=== PATIENT | female | born 1985 | race Caucasian/White ===

== ENCOUNTER 2016-04-02 08:22 | Inpatient (IN) | payer MEDICAID ==
[~2016-04-02] VITALS: Ht 167.6 cm; Wt 89.9 kg
--- NOTE | ~2016-04-02 | INDIVTXPL2 ---
"PATIENT: CATARINA NIEVES | | [facility] UNIT #: [id number] | [address] AGE/SEX: 30 F : [birth year] | [address] | [place] [address] ADMIT/REG DATE: 04/05/16 | ROOM: [facility] LOC: ADTC | ADTC | Individualized Treatment Plan DATE:04/26/16 Problem Statement/Issue Identified:I need to learn assertivness skills Goal: To learn to be assertive Objectives/Activities to achieve goal: 1.I will practice being assertive and share examples with my counselor. Due Date:05/03/16 Complete: Incomplete: 2.I will be leader and listen to feedback from others on how I am doing in this role and share with my counselor. Due Date:05/03/16 Complete: Incomplete: 3. I will practice using I statments instead of you statments and share examples with my counselor. Due Date:05/03/16 Complete: Incomplete: Client Signature Date Counselor Signaure: Date Outcome/Measurement of Progress Towards Goal: Counselor Signature: Date "
--- NOTE | ~2016-04-02 | CLPRLASSUM ---
"PATIENT: CATARINA NIEVES | | [facility] UNIT #: [id number] | [address] AGE/SEX: 30 F : 81 | [address] | [place] [address] ADMIT/REG DATE: 04/05/16 | ROOM: [facility] LOC: ADTC | ADTC | Client Problem List/Assessment Summary Date: 03/12/16 Problems identified by the client: I have had problems with substance abuse, my children are in CPS custody, and I have been to fpc. Problems identified by significant others:no contact Client's Strengths: kind,loving, dependent, and strong Problem List:Code: O Client needs to become familiar with basics of recovery as he/she is new to treatment and Twelve Step Program. Code: T Client needs to address criminal attitudes and beliefs which leads to substance abuse and crimes. Code: T Client is experiencing family &/or significant other discord and distancing as a result of past alcohol &/or drug usage. Code: T Client unresolved grief issues contributes to his/her continued drinking and using and needs to address these grief issues to avoid relapse. Code: T Client relapsed/returned to alcohol &/or drug usage after previous treatment attempts. Code Pereira: T: to be addressed during course of treatment O: problem noted, expected to resolve itself with abstinence--specific tx plan not required R: problem noted, will be referred upon discharge PRIMARY COUNSELOR: Yolande Trejo"
--- NOTE | ~2016-04-02 | INDIVTXPL2 ---
"PATIENT: CATARINA NIEVES | | [facility] UNIT #: [id number] | [address] AGE/SEX: 30 F : 81 | [address] | [place] [address] ADMIT/REG DATE: 04/05/16 | ROOM: [facility] LOC: ADTC | ADTC | Individualized Treatment Plan DATE:04/12/16 Problem Statement/Issue Identified:I need to learn why I use substances and how to stay clean. Goal:need to learn how to stay clean Objectives/Activities to achieve goal: 1.I will complete the how to get started packet and share with counselor and in group to get feedback. Due Date:03/14/16 Complete: Incomplete: 2.I will complete step one and share with my counselor and in group share pages 10-11 for feedback. Due Date:04/19/16 Complete: Incomplete: 3. I will give peers feedback and listen to peers feedback for me and share with my counselor how this is going. Due Date:05/03/16 Complete: Incomplete: Client Signature Date Counselor Signaure: Date Outcome/Measurement of Progress Towards Goal: Counselor Signature: Date "
--- NOTE | ~2016-04-02 | TXPLANREV ---
"PATIENT: CATARINA NIEVES | | [facility] UNIT #: [id number] | [address] AGE/SEX: 30 F : 81 | [address] | [place] [address] ADMIT/REG DATE: 04/05/16 | [facility]: [facility] | ADTC | Treatment Plan/Staffing Review Date: 04/19/16 Treatment plan was reviewed and determined appropriate as written:yes Treatment plan was reviewed and the following changes/addition/deletions are necessary:Client will work on resentments. Discharge plans were reviewed and determined appropriate as previously documented: yes Discharge plans were reviewed and determined to be as follows: client will go back to [place] and do her aftercare with [facility] and continue with AA/NA meetings and contact with sponsor. Other pertinent issues discussed during this staffing review include: client identified having some resentments she wants to work on. She is working on grief packet over the loss of her sister in law. Client appears to be doing well. Staff Present: Areli Coleman PRIMARY COUNSELOR: JEANE Valenzuela,L.A.DMónicaC. Client Signature Counselor Signature Date Time "
--- NOTE | ~2016-04-02 | INDIVTXPL2 ---
"PATIENT: CATARINA NIEVES | | [facility] UNIT #: [id number] | [address] AGE/SEX: 30 F : 81 | [address] | [place] [address] ADMIT/REG DATE: 04/05/16 | ROOM: A[facility] LOC: ADTC | ADTC | Individualized Treatment Plan DATE:04/16/16 Problem Statement/Issue Identified:I have grief issues over the loss of my sister racheal. Goal:I will work on my grief issues. Objectives/Activities to achieve goal: 1.I will complete my grief packet and share with my counselor. Due Date:04/25/16 Complete: Incomplete: 2.I will talk about my grief with peers and in group. Due Date:04/25/16 Complete: Incomplete: Client Signature Date Counselor Signaure: Date Outcome/Measurement of Progress Towards Goal: Counselor Signature: Date "
--- NOTE | ~2016-04-02 | RESCARESUM ---
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 Assignments completed were: getting started, step one, grief packet over the loss of her sister racheal, shame, self esteem, assertivness skills and resentments. She attended lectures 5 days a week on different topics. She attended AA/NA meetings daily and had individual sessions twice a week with counselor. She had no family involved but she attended the family program and wrote vent letters to parents and was working on feelings letters she can read to them. She still needs to do feelings letter to her kids also. she was made client support coordinator and this helped her to work on being more assertive. Client will need to continue working on resentments and self esteem. Continued Obstacles to Sobriety/Relapse Issues: old friends, men and relationships, not working a program, not having balance, if somthing goes wrong with getting her kids back, resentments. Family Issues Addressed: client had not family participate in family but client attended the family program. She worked on writing vent letters and was still working on feelings letters to family. y Individual Therapy y Group Therapy y Educational Series on Substance Abuse Parents/Significant Others Attended Family Program Acute Medical Problems During the Course of Treatment Transferred to Hospital During the Course of Treatment y Accepting of Substance Abuse Problem Non-accepting of Substance Abuse Problem Required Psychological or Psychiatric Consultation During the Course of Treatment Completed AA Step #1 During This Level of Care Significant Incidences During Treatment: NA Reason For Discharge: PATIENT: CATARINA NIEVES | | [facility] UNIT #: [id number] | [address] AGE/SEX: 30 F : 81 | [address] | [place] [address] ADMIT/REG DATE: 04/05/16 | ROOM: [facility] LOC: ADTC | ADTC | Summary of Residential Care y Completed Residential TX Goals and Ready For Next Level of Care Left Tx Against Medical Advice/Treatment Goals Not Complete Completed Residential Tx Goals But Refusing Continuing Care Recommendations Discharged Due to Noncompliance/Treatment Goals not Completed Discharged Earlier Than Planned Due to: Continuing Care Plan/Recommendations: Intensive Partial Care y Sponsor Partial Care y AA Meetings/NA Meetings y Outpatient Co-dependency Services Therapeutic Community / [facility] Marriage Counseling Other Specific Continuing Care Plan: Client will do aftercare at [facility]. PRIMARY COUNSELOR: JEANE Valenzuela,L.A.D.C."
--- NOTE | ~2016-04-02 | INDIVTXPL2 ---
"PATIENT: CATARINA NIEVES | | [facility] UNIT #: [id number] | [address] AGE/SEX: 30 F : 81 | [address] | [place] [address] ADMIT/REG DATE: 04/05/16 | ROOM: A[facility] LOC: ADTC | ADTC | Individualized Treatment Plan DATE:04/26/16 Problem Statement/Issue Identified:I have shame Goal:I need to learn how to feel good about myself Objectives/Activities to achieve goal: 1.I will read the booklet on shame and share with my counselor what I have learned. Due Date:04/30/15 Complete: Incomplete: 2.I will practice saying positive things about myself and stop any negative thoughts and share progress with my counselor. Due Date: 05/03/16 Complete: Incomplete: Client Signature Date Counselor Signaure: Date Outcome/Measurement of Progress Towards Goal: Counselor Signature: Date "
--- NOTE | ~2016-04-02 | TXPLANREV ---
"PATIENT: CATARINA NIEVES | | [facility] UNIT #: [id number] | [address] AGE/SEX: 30 F : 81 | [address] | [place] [address] ADMIT/REG DATE: 04/05/16 | ROOM: [facility] LOC: ADTC | ADTC | Treatment Plan/Staffing Review Date: 04/26/16 Treatment plan was reviewed and determined appropriate as written: yes Treatment plan was reviewed and the following changes/addition/deletions are necessary:will meet with client today to see if she needs to work on somthing else. Discharge plans were reviewed and determined appropriate as previously documented:yes Discharge plans were reviewed and determined to be as follows: client will discharge 05/03 and go back to [place] and do aftercare with [facility] counseling. Other pertinent issues discussed during this staffing review include: Client was made leader and this can help her practice her assertiveness skills. She seems to be doing good in the program. Staff Present: Leeann Sparks PRIMARY COUNSELOR: JEANE Valenzuela,L.A.DMónicaCMónica Client Signature Counselor Signature Date Time "
--- NOTE | 2016-04-05 15:35 | NUR ---
Education 1 Hour: Client heard a panel of speakers from the local recovery community, who shared their experience, strength and hope.
--- NOTE | 2016-04-05 15:38 | NUR ---
ADMISSION NOTE Client is a 30 y/o, single female who states that she self referred to treatment. Client came here today from [facility], where she had been for 3 days. Client states medical allergy to penicillin and brings home medications with her; home medications were packaged for storage at the pharmacy. Clilent states DOC is meth, last used 04/02/2016 when she used, "2 lines." Client resides in [place] with her children. Client does not anticipate any family participation in family group.Client was searched, no contraband found. Client did turn in a cellphone, earbuds, clippers and a rim fire charger operator in a case to be stored in the locked storage at the tech station. Rights/Responsibilities: Copy given and explained to client. Signed and accepted by client. Client oriented to physical lay out of the ADTC unit, given Big Book and admission packet. A John was assigned. [place]
--- NOTE | 2016-04-05 15:52 | NUR ---
IS 1 hr/ Met with client for our first session. Client still working on bio psycho paperwork. Had her sign initial treatment plan and discussed the program and when we will meet. I let her leave her patient case coordinator a message. Her children have been placed with her parents in [place]. She does not think she will have any family involved in the family program but she has release signed so I can contact them. Client said she is on serequil and they just adjusted it in [place] to 100 mgs. Next apt is 04/10 at 2pm.
--- NOTE | 2016-04-05 23:25 | NUR ---
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, and attended on-site AA meeting. Client was checked into room and seen by , did 1st day introductions. SE: 1st day
--- NOTE | 2016-04-06 04:40 | NUR ---
Bed Note: Clt lay motionless in bed with eyes closed showing no distress at all bed checks.
--- NOTE | 2016-04-06 11:51 | NUR ---
Group 1.5 Hr Ratio 1:11/Topics today were a Getting Started packet, Orientating a new client to group rules and goals and issues. Client was orientated to group rules and goals. Client did share how she could relate to what peers were sharing.
--- NOTE | 2016-04-06 13:00 | NUR ---
PEER REVIEWS, 1 HR: Clt participated in peer review process and was able to give open and honest feedback to those receiving a review.
--- NOTE | 2016-04-06 15:51 | NUR ---
Tech Note: Client watched the second half of Ple[employer] for education and is working on Getting Started.
--- NOTE | 2016-04-06 20:36 | NUR ---
Tech note: client watched tv and movies. SE:group
--- NOTE | 2016-04-07 04:38 | NUR ---
Bed note: client was in bed with eyes closed and no distess at all bed checks
--- NOTE | 2016-04-07 16:33 | NUR ---
Tech Note: Client attended N.A.Panel and is working on Getting Started.
--- NOTE | 2016-04-07 20:17 | NUR ---
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 Client watched tv. SE: nap.
--- NOTE | 2016-04-08 05:02 | NUR ---
Bed Note : Client had eyes closed and in no distress at all bed checks.
--- NOTE | 2016-04-08 16:40 | NUR ---
Tech Note: Client is working on getting started pkt, took nap and attended restoration.
--- NOTE | 2016-04-08 23:42 | NUR ---
TECH NOTE: Client attended AA panel, participated in community clean and watched tv/movies. Attended optional SANDWICH COUNTER ATTENDANT meeting SE: muslim and SANDWICH COUNTER ATTENDANT
--- NOTE | 2016-04-09 04:15 | NUR ---
BED NOTE: Client was in bed, motionless with eyes closed all three bed checks.
--- NOTE | 2016-04-09 07:27 | HP ---
ADMIT: 04/05/2016 RM/LOC: [facility] MR#: [id number] [address] [place], [place] [address] ZULEIMA NIEVES [address] [place] [address] History and Physical SEX: F AGE: 30 : 1985 DATE OF SERVICE: CHIEF COMPLAINT: Chemical dependency. HISTORY OF PRESENT ILLNESS: Zuleima is a 30-year-old white female, admitted to residential level treatment at [facility] on April 05, 2016, after detox at [facility] April 02 through . To make long story short, she had prior charges for possession with intent to distribute crack, and she was placed in assisted for 2 years and was out on parole in 2013. While on parole, [place] Department [employer] and [employer] were involved and removed her kids on March 15, 2016. She was scheduled to be admitted to treatment on April 02, but relapsed on meth and was admitted to [facility] on the to detox prior to coming to treatment on the . Zuleima's drug of choice on admission is methamphetamines. She first started using meth at 14 years of age with an ex-boyfriend. She states from their gaining, she used about 8 ball on weekends. She for the most part smoked. She states from 18 to 23, she never used meth. From to , she used IV about 3 to 4 times a week usually a half a gram a day or more. She states she was dealing back then. She ultimately went to assisted from to . She states the last 3 years since getting out of assisted she has been smoking, doing hot rails, and doing IV approximately 5 days a week. She would use 0.25 g or more on occasion. Her last use was April 02. She states although she has used IV, she has never shared or used dirty needles and denies having sex with known IV user and declines HIV and hepatitis C testing. She additionally admits to using cocaine, states she has used it 100s of times, she used it IV once, the last use was last month. Second drug of choice is cannabis. She first started using pot at 9 years of age with friends. Mario high, she smoked at 2 to 3 times a week. High school, she smoked daily up to a 0.5 ounce a week. From 18 to 25, she smoked a quarter to a 0.5 ounce a week and would smoke on a daily basis. She states at 25 years of age, she went to assisted and has not smoked pot since. Third drug of choice is likely alcohol. First started drinking at 9 years of age with friends. In mario high, she would drink about two 40-ounce beers. High school, she states she really never drank and never drank again until 19. From 19 to 25, she would usually have 6 to 12 beers or 5th of hard liquor. She states she drank 3 or more times a week. She described herself as a binge drinker. She states from 27 till now, her alcohol use is decreased. She states now she drinks 2 to 3, 40-ounce beers usually 1 or 2 times a week. Her last use was a month ago. She additionally admits to using OxyContin for about a month when she was 24 and has not used since. She admits to using hallucinogens in the past and huffed gas once and tried heroin once. PAST MEDICAL HISTORY: OPERATIONS: Include tonsillectomy, cholecystectomy, and tubal ligation. ADMIT: 04/05/2016 RM/LOC: [id number] MR#: [id number] [address] [address] ZULEIMA NIEEVS [address] [place] [address] History and Physical SEX: F AGE: 30 : 1985 ILLNESSES: Include bipolar disorder and genital herpes. CURRENT MEDICATIONS: Include: 1. Seroquel 100 mg at bedtime. 2. Trileptal 300 mg at bedtime. 3. Lamotrigine 200 mg at bedtime. 4. Celexa 40 mg at bedtime. ALLERGIES: INCLUDE PENICILLIN. SOCIAL HISTORY: Is that of a 30-year-old female. She has 2 children that are currently at her parents' house. She smokes a half packet cigarettes daily. She has previously been in assisted for 2 years and is on parole, has charges pending for resisting arrest, destruction of property, and paraphernalia charges. FAMILY HISTORY: Includes numerous aunts and uncles and cousins that drink and do drugs. She has a brother, who is an alcoholic. Maternal grandfather has coronary artery disease. Mother and paternal aunt have cancer. Brother with hypertension. Paternal aunt and brother with diabetes. Maternal grandmother with stroke. REVIEW OF SYSTEMS: Remarkable for mental health diagnoses outlined above. Of note, she has had prior mental health commitments and prior suicidal ideation. Review of systems is currently negative. PHYSICAL EXAMINATION: VITAL SIGNS: She is 5 feet 6 inches with a weight of 89.9 kg, blood pressure 132/67 with pulse 69, and temp 97.9. GENERAL APPEARANCE: Is that of a 30-year-old white female, who is alert, oriented, appears much older than stated age. HEENT: Pupils are reactive. Extraocular muscles are intact. TMs were unremarkable. She has had some dental extractions. NECK: Without nodes or masses. HEART: Regular without murmur. LUNGS: Clear. ABDOMEN: Obese, soft, nontender, benign. BREASTS: Deferred. GENITOURINARY: Deferred. RECTAL: Deferred. EXTREMITIES: No clubbing, cyanosis, edema, or splinter hemorrhages. NEUROLOGIC: Exam is grossly normal including light touch strength DTRs. ASSESSMENT: 1. Stimulant use disorder, severe with history of IV use. 2. Cannabis use disorder, severe in full sustained remission. 3. Alcohol use disorder, moderate. ADMIT: 04/05/2016 RM/LOC: [facility] MR#: [id number] [address] [place], [place] [address] ZULEIMA NIEVES [address] [address] History and Physical SEX: F AGE: 30 : 1985 4. Tobacco dependency. 5. Exogenous obesity. 6. Bipolar disorder. 7. Genital herpes. 8. Increased risk for human immunodeficiency virus and hepatitis C with the patient currently declining HIV and hepatitis C testing. PLAN: We will admit her to residential level treatment. Continue with her Seroquel, lamotrigine, Trileptal, and Celexa. We will proceed with drug and alcohol abuse dependency treatment and counseling and further evaluation and management based on course during hospitalization. Please see her hospital records for the details. Cyrus Adams MD/ mone JOB #: [id number] CC: Cyrus Adams, Attending Physician FAMILY PHYSICIAN, Family Physician
--- NOTE | 2016-04-09 10:42 | NUR ---
Tech notes: Client is working on Getting started
--- NOTE | 2016-04-09 12:51 | NUR ---
Experiential Group 1.5 hr/ Clients all participated in family sculpturing by role-playing, feedback, and relating. They also shared what they needed to get help with and a gratitude. Client is grateful for recovery and wants help with anger/OCD, and hopes her boyfriend will do ronen things with her son.
--- NOTE | 2016-04-09 13:32 | NUR ---
Education note: Client watched video "It can't happen to me"
--- NOTE | 2016-04-09 16:00 | NUR ---
RECOVERY 101 1 HR/ Clients learned about Fundamentals of recovery and tools from AA/NA. They participated by sharing what they hear at meetings that are important for their recovery like: working the steps, how to get and use sponsors, reading C.A.L. literature, service work, HP concept, opening up, slogans, using the Serenity Prayer, attending functions, what is closed and open meetings, etc.
--- NOTE | 2016-04-09 19:08 | NUR ---
Education 1HR: Clt attended lecture given by counselor on "Communication".
--- NOTE | 2016-04-09 22:45 | NUR ---
Tech note: Client participated in group by playing catch phrase. Client attended an onsite NA meeting. SE: [employer].
--- NOTE | 2016-04-10 05:10 | NUR ---
Bed note : Client was motionless with eyes closed at all bed checks.
--- NOTE | 2016-04-10 08:24 | NUR ---
FAMILY CONTACT/ An attempt was made but did not reach, will try again.
--- NOTE | 2016-04-10 15:03 | NUR ---
IS 1 hr/ Client was given step 1 and she shared getting started in group today. We called [facility] but her counselor was out sick. she would like to go back to [place] where her kids are and she said she has a house there. Left message with fisheries enforcement officer also. Went over the rest of her bio psycho social. Client appears serious. She said her dad said he is ready to say she can leave and go to [place] or where ever and he will keep this kids. She said he has no right to do this. They were removed from her home and placed with grandparents due to meth showing in hair follicle. next apt is 04/12 at 2pm.
--- NOTE | 2016-04-10 16:17 | NUR ---
A.MMónica 1.5 hr group/ratio 02/24 Group heard a getting started and a step one. Discussion was on not being too sure of yourself that you won't relapse. This client shared her getting started and did a fair job.
--- NOTE | 2016-04-10 16:33 | NUR ---
Tech Note: Client watched video The Enabler and is working on the Big Book.
--- NOTE | 2016-04-10 18:49 | NUR ---
Education: 1 Hour. Client attended presentation given by [facility] AIDS/STDS/HIV. HIV testing was available.
--- NOTE | 2016-04-10 20:18 | NUR ---
Relapse Prevention,03/09 1.0, Client attended and participated in relapse prevention education which focused on internal and external triggers.
--- NOTE | 2016-04-10 23:21 | NUR ---
Tech note: Client participated in rec by playing pictionary. Client went to guided meditation and attended an onsite AA meeting. SE: Meeting with counselor
--- NOTE | 2016-04-11 05:34 | NUR ---
tech note: client was motionless in no distress at all bed checks.
--- NOTE | 2016-04-11 10:22 | NUR ---
Tech Notes: Client is working on Step 1.
--- NOTE | 2016-04-11 12:00 | NUR ---
AM GROUP 10:1/1.5 HR: Client and peers helped to ORIENT A NEW PEER TO GROUP GUIDELINES, GOALS, & OBJECTIVES. Two group members processed from assignments but much of the examples they gave and personal sharing focused on how addiction affects children at any age. This client was active throughout with clarifying questions and feedback. She related to others' sharing as she sees a lot of negative acting out behaviors with her children.
--- NOTE | 2016-04-11 15:48 | NUR ---
IS 1 hr/ Client is working on step 1. Talked about her sad feelings over the loss of a friend and then her sister racheal. She would like to do a grief packet over the sister racheal. she had some tears over this. Client talked about being bothered by some very annoying people in here. She comes across as aggressive when she talks so she will work on assertivness skills also. Tryed to call dad and no answer.
--- NOTE | 2016-04-11 15:51 | NUR ---
counselor note/ attempted to call [facility] counter caser Brenda Flores back and had to leave a message.
--- NOTE | 2016-04-11 23:31 | NUR ---
Tech note:Client participated in rec-worked on beaded projects SE:good day
--- NOTE | 2016-04-11 23:42 | NUR ---
Education: 1 hour lecture on step 2 & 3 given by counselor
--- NOTE | 2016-04-12 04:41 | NUR ---
Bed note: client was in bed with eyes closed and no distress at all bed checks.
--- NOTE | 2016-04-12 11:55 | NUR ---
Group 1.5hrs 1:10 Two new clients were orientated about group goals and rules. Feelings letters were shared and feedback was given by peers. Client shared how she felt her peer was not being truthful about his Getting Started packet. Client shared that she has went from passive to aggressive and wants to work on being assertive. Student- Bladimir Aden
--- NOTE | 2016-04-12 14:22 | NUR ---
Education 1 Hour: Client heard a presentation on, "Marijuana."
--- NOTE | 2016-04-12 15:17 | NUR ---
Tech Note: Client participated in Spiritual Enrichment in the morning and walked in the halls for afternnon exercise. Client made a phone call, with permission from supervisor general.
--- NOTE | 2016-04-12 16:45 | NUR ---
Education: 1hr Participated in Step 2 work group. Very involved in the group discussion.
--- NOTE | 2016-04-12 23:08 | NUR ---
Tech Note: Client participated in rec and attended A.A.Meeting.
--- NOTE | 2016-04-12 23:24 | NUR ---
Education Note: Client watched the healthy families video which lasted an hour.
--- NOTE | 2016-04-13 04:51 | NUR ---
Bed note: Client was in bed with eyes closed and no distress at all bed checks
--- NOTE | 2016-04-13 11:30 | NUR ---
AM GRP 1.5 HRS, Ratio 1:11/ Grp was very confrontational. This clt did not confront but did give effective feedback. She let a peer know he needed to focus on himself and not the others in the grp.
--- NOTE | 2016-04-13 15:13 | NUR ---
PEER REVIEWS 1 HR: Clt participated in peer review process and was able to give open and honest feedback to those receiving a review.
--- NOTE | 2016-04-13 16:35 | NUR ---
Tech Note: Client watched a video "How to Sabotage Your Treatment" and is working on Step 1 and Grieving.
--- NOTE | 2016-04-13 23:57 | NUR ---
TECH NOTE: Client participated in guideline reading, watched tv/movies and used the phone. Was upset after a call. SE: tacos and watching movies.
--- NOTE | 2016-04-14 04:48 | NUR ---
BED NOTE: Client was in bed, motionless with eyes closed all three bed checks.
--- NOTE | 2016-04-14 12:23 | NUR ---
PEER REVIEWS 1 HR: Clt participated in peer review process and was able to give open and honest feedback to those receiving a review.
--- NOTE | 2016-04-14 16:31 | NUR ---
Tech Note: Client went to AA mtg at [address] [place] [address]. Is working on Step 1 and Grief. Client had a visitor.
--- NOTE | 2016-04-14 20:07 | NUR ---
TECH NOTE: Client played Catch Phrase for REC, attended off site AA meeting, watched TV/movies and used phone. SE: visitors
--- NOTE | 2016-04-15 04:51 | NUR ---
Bed Note: Clt lay motionless in bed with eyes closed showing no distress at all bed checks.
--- NOTE | 2016-04-15 16:23 | NUR ---
Tech Note: Client participated in Big Book Study. Client stated that she is working on Step One. Client received visitors.
--- NOTE | 2016-04-15 22:56 | NUR ---
TECH NOTE: Client attended AA panel, participated in community clean and watched tv/movies. in room in bed with lights out during shift change. Attended CHAIR PAD MAKER meeting SE: phone calls
--- NOTE | 2016-04-16 04:28 | NUR ---
Bed Note: Clt lay motionless in bed with eyes closed showing no distress at all bed checks.
--- NOTE | 2016-04-16 10:19 | NUR ---
Tech notes: Client is working on Step 1 and Grief pkt
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
--- NOTE | 2016-04-16 12:44 | NUR ---
Education Note: Client attended educational speaker Kit on Crossaddiction.
--- NOTE | 2016-04-16 16:00 | NUR ---
RECOVERY 101 1 HR/ Clients all brought big books, were given highlighters and shown tools they can use in the big Book on: acceptance, 1/2measures, 12 promises, living in the solution-not the problem, resentments, 2 week prayer to forgiveness, etc. Clients took turns reading and some commented and asked questions.
--- NOTE | 2016-04-16 20:36 | NUR ---
Education: 1 hour lecture on feelings given by counselor
--- NOTE | 2016-04-16 23:49 | NUR ---
Tech Note: Client played a game for rec, and attended N.A.Meeting. SE: All Day
--- NOTE | 2016-04-17 04:04 | NUR ---
bed note: client was in bed with eyes closed and no distress at all bed checks.
--- NOTE | 2016-04-17 13:11 | NUR ---
A.M. 1.5 hr group/ Group heard a getting started assignment. Discussed anger managment, being assertive and how to give feedback appropriatly. This client was attentive.
--- NOTE | 2016-04-17 14:53 | NUR ---
IS 1 hr/ Discussed client working on assertivness skills. She also talked about wanting to still be around 2 old friends that smoke pot and thinking it is ok cause meth was her problem. She will ask in a meeting for feedback on this and report back. Called commercial account officer and new event marketing coordinator Rosanna. Client did speak up she wants visits with her kids but does not know if this will happen. chief quality officer is ok with her coming back to [place] to be close to kids and doing aftercare at [facility]. Will have phone conference for next apt with caser shoe parts on 04/20 at 1pm.
--- NOTE | 2016-04-17 15:16 | NUR ---
Education Note: Client heard a presentation on, "Grief."
--- NOTE | 2016-04-17 16:31 | NUR ---
Tech Note: Client particiapted in light stretching for morning exercise and walked in the halls in the afternoon. Client stated that she is working on Step One.
--- NOTE | 2016-04-17 17:02 | NUR ---
Big Group 1 hr/ Did big group after hearing a client had some sleeping pills on the unit. It finally came out who did but she claims sister took them home. also talked about unhealthiness of starting relationships while in treatment, and of others keeping secrets. This client spoke up twice. At one point she said it was not just one person that had real coffee.
--- NOTE | 2016-04-18 00:08 | NUR ---
Education: 1 hour lecture given by Counselor on Step 1
--- NOTE | 2016-04-18 00:25 | NUR ---
Tech note: client worked on projects for the alumni [employer]reen for rec and attended AA meeting SE: got to make contace with rifle case repairer
--- NOTE | 2016-04-18 04:18 | NUR ---
Bed Note: Clt lay motionless in bed with eyes closed showing no distress at all bed checks.
--- NOTE | 2016-04-18 10:33 | NUR ---
Tech Notes: Client is working on Step 1 and Grief pkt.
--- NOTE | 2016-04-18 13:28 | NUR ---
Education note: Client attended education by [facility]
--- NOTE | 2016-04-18 17:52 | NUR ---
SPIRITUAL EDUCATION 1 HR. Today we discussed ways to quiet the mind and meditation and creativity.
--- NOTE | 2016-04-18 23:27 | NUR ---
tech note: Client played a game for recreation & attended onsite NA meeting. SE: bracelet.
--- NOTE | 2016-04-19 02:19 | NUR ---
Education: 1 Hour. Client attended "Unresolved Anger" video & discussion presented by staff.
--- NOTE | 2016-04-19 05:01 | NUR ---
BED NOTE: Client was in bed motionless with eyes closed all three bed checks.
--- NOTE | 2016-04-19 11:35 | NUR ---
Group 1.5hours 1:11 Clients shared assignments from their Getting Started packet and feelings letters. Client shared from her Getting Started packet and received feedback from her peers. Student: Bladimir Aden
--- NOTE | 2016-04-19 13:04 | NUR ---
Tech Note: Client participated in Spiritual Enrichment and followed programming.
--- NOTE | 2016-04-19 13:09 | NUR ---
Education 1 Hour: Client heard a presentation from a member of the recovery community, who shared his experience, strength and hope.
--- NOTE | 2016-04-19 16:37 | NUR ---
STEP EDUCATION/1 HR/ focus was on step 4. Discussed what step 4 was about and then each person answered if there were any things in their family history that bothers them and do they feel they are blocked in any area. This client said she has resentments to work on.
--- NOTE | 2016-04-19 20:22 | NUR ---
Education 1HR: Clt watched video by Amara Jim on Step 5.
--- NOTE | 2016-04-19 22:41 | NUR ---
TECH NOTE: Client participated in Guided Meditation and attended onsite AA meeting. Client c/o peers attitude and its effects on her. Was upset and talked to counselor about her anger and rage. SE: group
--- NOTE | 2016-04-20 04:28 | NUR ---
Bed Note: Clt lay motionless in bed with eyes closed showing no distress at all bed checks.
--- NOTE | 2016-04-20 12:00 | NUR ---
Group 1.5 Hr Ratio 1:10/Topics today were a step one a grief letter and a getting started packet. Client shared positive feedback with peers sharing issues and assignments.
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
--- NOTE | 2016-04-20 15:54 | NUR ---
Tech Note: Client watched a video "It Can't Happen To Me" and is working on a Grieving Packet.
--- NOTE | 2016-04-20 22:49 | NUR ---
Tech note : Client watched tv, played games and talked on the phone SE; New housing case manager
--- NOTE | 2016-04-21 05:02 | NUR ---
Bed note: Client was in bed with eyes closed and no distress at all bed checks.
--- NOTE | 2016-04-21 15:44 | NUR ---
Tech Note: Client attended N.A.Panel and is working on Spirit book, and Emotions book.
--- NOTE | 2016-04-21 20:50 | NUR ---
tech note: client played game for recreation & attended offsite AA meeting.Client talked on the phone & watched tv. SE: talk with sponsor.
--- NOTE | 2016-04-21 21:51 | NUR ---
tech note: client c/o level 4 headache @ 1966,tylenol 650 mg was given.
--- NOTE | 2016-04-22 16:09 | NUR ---
Tech Note: Client is working on spirituality book, emotions book, and an anger packet. She was late to community meeting.
--- NOTE | 2016-04-22 22:33 | NUR ---
Tech note:Watched Tv and Movies. Participated in community clean, attended AA panel with Chalo Gallegos. Attended optional DRAFTING TECHNICIAN meeting SE:Talk to son
--- NOTE | 2016-04-23 05:01 | NUR ---
Bed note: Client was in bed with eyes closed and no distress at all bed checks.
--- NOTE | 2016-04-23 11:30 | NUR ---
Experiential Group 1.5hr/ Clients all participated in Family Sculpturing by role-playing, relating and giving feedback. This client was involved and attentive.
--- NOTE | 2016-04-23 13:28 | NUR ---
Education note: Client attended education speaker Briana on Tobacco.
--- NOTE | 2016-04-23 14:20 | NUR ---
Tech Note: client is working on Vent letters, Anger pkt and mtg with anand.
--- NOTE | 2016-04-23 16:00 | NUR ---
RECOVERY 101 1 HR/ Clients all shared what they have struggled with in treatment and what helps them. This client shared she is learning to be assertive and not passive/aggressive.
--- NOTE | 2016-04-23 16:06 | NUR ---
IS 1 hr/ Client read her grief packet over the loss of her sister racheal. She asked if its wierd cause she did not cry. She shared she was raised to not show emotions. She will work on vent letters to parents and then feelings letters. Next apt is 04/26 at 2pm.
--- NOTE | 2016-04-23 18:05 | NUR ---
Education: 1 Hour. Client attended "Forgiveness" lecture presented by staff.
--- NOTE | 2016-04-23 23:19 | NUR ---
tech note: client played a game for recreation & attended onsite NA meeting. SE: smoking education.
--- NOTE | 2016-04-24 04:35 | NUR ---
tech note: client was motinless in no distress at all bed checks.
--- NOTE | 2016-04-24 13:59 | NUR ---
A.M. 1.5 hr res group/ratio 1:8/ Group heard a grief letter, a getting started, and also discussed shame, guilt, and forgiving self. This client shared grief letter over the loss of her sister racheal and feels guilty she cant cry.
--- NOTE | 2016-04-24 15:43 | NUR ---
Tech Note: Client attended programming on Relapse Prevention and is working on Spirituality, Anger Management and Feelings Letters.
--- NOTE | 2016-04-24 16:30 | NUR ---
Relapse Prevention, 03/12 ration, 1.0 hours, Client attended and participated in relapse prevention education which focused on relapse triggers/issues.
--- NOTE | 2016-04-24 22:26 | NUR ---
TECH NOTE: Client attended Alumni meeting and on-site AA meeting. SE: chairing first meeting
--- NOTE | 2016-04-24 22:56 | NUR ---
EDUCATION NOTE: 1HR lecture on Shame given by counselor
--- NOTE | 2016-04-25 04:45 | NUR ---
Bed note: Client was in bed with eyes closed and no distress at all bed checks.
--- NOTE | 2016-04-25 10:09 | NUR ---
Tech note: Client is working on Anger pkt and vent letters
--- NOTE | 2016-04-25 12:01 | NUR ---
AM GROUP .5 HR: Client and peers helped to ORIENT TWO NEW CLIENTS TO GROUP GUIDELINES, GOALS AND OBJECTIVES. Several clients had assignments to process. This generated a lot of feedback and different individuals sharing from their own experience. Various examples of behaviors and values compromised were addressed with much of the focus on values compromised, how kids become the innocent victims of this disease and how painful but necessary it is to have to look at the reality of those consequences. Client talked a lot about how her family has tried to confront her drug use and finally gave up. She also shared guilt and shame resulting from how her kids have been impacted. She was active throughout.
--- NOTE | 2016-04-25 12:46 | NUR ---
Education note: Client attended speaker Rashard Mojica
--- NOTE | 2016-04-25 16:03 | NUR ---
SPIRITUAL EDUCATION 1 HR. Topic today was on how addiction is a disease of body mind and spirit and how the Steps fit in treating the SPIRIT. We also talked about ways to spirituality, payoffs, and how spirituality is related to both addiction and recovery.
--- NOTE | 2016-04-25 18:28 | NUR ---
Education: 1 Hour. Client attended "Boundaries" lecture presented by staff.
--- NOTE | 2016-04-25 22:27 | NUR ---
Tech note : Client played pictionary for rec and attended an onsite NA meeting. SE: Paperwork about daughter
--- NOTE | 2016-04-26 05:20 | NUR ---
tech note: client was motionless in no distress at all bed checks.
--- NOTE | 2016-04-26 11:30 | NUR ---
AM GRP 1.5 HRS, Ratio 1:11/ Clt stated she has a lot on her mind, and it has to deal with not letting go of what people were saying about her at home. She went into seme detail, until she was told it sounds like a whole lot of drama and she needs to stay away from those people.
--- NOTE | 2016-04-26 16:30 | NUR ---
Tech Note: Client participated in Spiritual Enrichment in the morning and went for an outdoor walk in the afternoon. Client stated that she is working on writing a Vent Letter.
--- NOTE | 2016-04-26 16:35 | NUR ---
Education 1 Hour: Client heard a presentaion on "Wellness in Recovery."
--- NOTE | 2016-04-26 17:00 | NUR ---
FAMILY EDUCATION 3 HR/ Client has no family and she did learn about the disease concept, shared her chemical history and the consequences of her use. Age 9 started on pot/alcohol, and meth by age 14, 21-28 cocaine daily. Also tried other things, Oxy's for 2-3 months. She did use IV.
--- NOTE | 2016-04-26 19:50 | NUR ---
IS 1 hr/ Client went over some of her anger packet. She still needs to do vent letters to parents and then feelings letters. Gave her shame booklet to read as she has identified this as an area she needs to look at. She called her dad and he will pick her up on at 10. next apt is 05/02 at 8 AM.
--- NOTE | 2016-04-26 23:11 | NUR ---
Tech note: Client worked on craft projects for the [employer] for rec and attended AA meeting SE: Family phone call
--- NOTE | 2016-04-27 00:12 | NUR ---
Education note: Clients watched a movie on "my attitude' by Edgardo Hyman.
--- NOTE | 2016-04-27 04:57 | NUR ---
Bed note; client was motionlees, with eyes closed at all bed checks.
--- NOTE | 2016-04-27 12:09 | NUR ---
Group 1.5 Hr Ratio 1:12/Topics today were a change plan, resentment packet and a getting started. One new peer was orientated to group rules and goals. Client shared she does not want to go back to [place] and a peer said she had a choice but client said she has to go back to get her kids from [facility]. Client gave positive feedback when she could relate to what was being shared.
--- NOTE | 2016-04-27 14:01 | NUR ---
PEER REVIEWS 1.25 HRS: Clt participated in peer reviews and took a risk to give open and honest feedback to those receiving a review.
--- NOTE | 2016-04-27 16:29 | NUR ---
Tech Note: Client went with group for outside walk and watched "Marijuana", by Sonu Hyman, for education. Clt is working on Spirituality and Shame Face.
--- NOTE | 2016-04-27 23:55 | NUR ---
Tech Note: Client read guidelines with peers. Client attended A.A. SE: Talking with another client in [facility].
--- NOTE | 2016-04-28 05:34 | NUR ---
Bed Note: Client was motionless with eyes closed at all bed checks.
--- NOTE | 2016-04-28 15:52 | NUR ---
Tech Note: Client working on Shame Face and Vent Letters.
--- NOTE | 2016-04-28 20:37 | NUR ---
Tech Note: Client played a game for rec. They also attended the A.A.Meeting at [address] [place] [address]. SE: Talking to her son
--- NOTE | 2016-04-29 05:33 | NUR ---
Bed Note: Client was motionless with eyes closed at all bed checks.
--- NOTE | 2016-04-29 09:23 | NUR ---
Medication Note: Client took prn cepacol and mucinex.
--- NOTE | 2016-04-29 15:38 | NUR ---
Tech Note: Client participated in Big Book Study. Client stated that she is working on, "Shame Faced" and writing Feelings Letters.
--- NOTE | 2016-04-29 23:37 | NUR ---
Client attended A.A.Panel and helped with community clean. She also attended the CLOTH SECONDS SORTER Meeting. SE: Receiving her 30 day chip
--- NOTE | 2016-04-30 05:04 | NUR ---
Bed Note: Client was motionless with eyes closed at all bed checks.
--- NOTE | 2016-04-30 10:13 | NUR ---
Tech note: Client is working on Shame face and shame letters.
--- NOTE | 2016-04-30 11:00 | NUR ---
Client is sick and will remain in her room all day.
--- NOTE | 2016-04-30 12:54 | NUR ---
Group 1.5 hr/ 9:1 This client was attentive but within first 1/2 hour of group left and appeared to feel sick.
--- NOTE | 2016-04-30 22:45 | NUR ---
TECH NOTE: Client was sick in their room all evening. Was checked on throughout the night by techs and taken meds as needed
--- NOTE | 2016-04-30 23:59 | NUR ---
Education: 1 Hour. Client attended "Adult Children" presentation given by staff.
--- NOTE | 2016-05-01 05:24 | NUR ---
BED NOTE: Client was in bed, motionless with eyes closed first and last check. Client talked to tech at second check.
--- NOTE | 2016-05-01 11:32 | NUR ---
GROUP 1.5 HRS. 1:10 Group discussion included defenses of blaming others and willingness to take responsibility for one's recovery. Peers processed HOW TO GET STARTED IN TREATMENT assignments. This client appeared attentive and offered appropriate feedback.
--- NOTE | 2016-05-01 16:26 | NUR ---
Relapse Prevention; 1.0 hours; Client attended and actively participated in relapse prevention which focused on compulsive behaviors and relapse.
--- NOTE | 2016-05-01 16:33 | NUR ---
Tech Note: Client attended speaker meeting, presented by [employer], and Relapse Prevention education. Client is currently working on Feelings Letters and her Event Letter.
--- NOTE | 2016-05-01 23:25 | NUR ---
Education note: 1 hour lecture given by counselor on "Self Esteem"
--- NOTE | 2016-05-02 04:14 | NUR ---
BED NOTE: Client was in bed, motionless with eyes closed all three bed checks.
--- NOTE | 2016-05-02 09:13 | NUR ---
IS 1 hr/ Client read vent letter to dad. We talked about how they did the best they could do and now she is an adult in recovery so its time to not blame and become redponsible and they can have a better relationship. She feels the areas she needs to work on is resentments,self worth and codependency or as I mentioned could be more male dependency. She learned about shame and really identified with the shame booklet. she feels being leader helped her and she said the clients are seeing a change in her. Completed the continued care plan and gave her a madallion as this will be our last session due to her discharging tomorrow.
--- NOTE | 2016-05-02 10:57 | NUR ---
Tech note: Client is working on BB and mtg with anand
--- NOTE | 2016-05-02 12:00 | NUR ---
AM GROUP 9:1/1.5 HR: Client and peers participated as three peers processed issues and assignments. Much of the focus became how to rebuild a healthy and realistic value system after compromised original values to such a degree in active addiction. This client was active with feedback and personal sharing, relating to a younger male who is struggling with his need to go to a [facility] vs his want to be home with his two young sons. Client said she had the same struggle trying to share "just enough" with her 5 y/o to help him understand why she would be away from him. When an older male expressed anger for "screwing over" customers, client wanted to justify, "other car lots do the same thing!"
--- NOTE | 2016-05-02 13:16 | NUR ---
Education note: Client attended speaker Don for education today.
--- NOTE | 2016-05-02 18:35 | NUR ---
SPIRITUaL EDUCATION 1 HR. Today we discussed difference between spirituality and amish, and then played a spiritual challenge game where group discussed thought provoking questions on spirituality and the meaning.
--- NOTE | 2016-05-02 22:43 | NUR ---
EDUCATION NOTE: 1 HR Counselor gave a lecture on Disease Concept
--- NOTE | 2016-05-02 23:50 | NUR ---
[employer] note: client played Pictionary for recreation & attended onsite NA mtg. Client was given her luggage. Client was upset about not being notified about changes in her medications. Client later apologized to [employer] for her attitude. SE: 30 day chip.
--- NOTE | 2016-05-03 04:14 | NUR ---
BED NOTE: Client was in bed, motionless with eyes closed all three bed checks.
--- NOTE | 2016-05-03 10:53 | NUR ---
DISCHARGE NOTE Client completed treatment and left the facility with her father, to return home. Discharge instructions were reviewed and a signed copy provided to the client. Client took all personal property with her, including home medications that had been stored at the pharmacy.
--- NOTE | 2016-06-17 15:28 | DS ---
ADMIT: 04/05/2016 RM/LOC: [facility] MR#: [id number] [id number] [place], [place] [id number] ZULEIMA NIEVES [address] [place] [address] General Discharge Summary SEX: F AGE: 30 : 1985 ADMISSION DATE: 04/05/2016 DISCHARGE DATE: 05/03/2016 INDICATION FOR HOSPITALIZATION: Zuleima is a 30-year-old white female, admitted to residential level treatment at [facility] on April 05 after detox at [facility] April 02 through the . She had prior charges for possession with intent to distribute crack and was placed in [facility] for 2 years and was out on parole. On parole with the [place] [employer] were involved and removed her kids in February 2015. She was admitted to treatment with hopes to get clean and regain custody of her kids. Zuleima's drug of choice on admission is methamphetamines. Second drug of choice is cannabis. Third drug of choice is alcohol. Please see her admission H and P for further details regarding her history of present illness, past medical history, physical exam, and assessment at the time of hospitalization. HOSPITAL COURSE: On admission, Zuleima was admitted to our residential level treatment [facility]. Her Lamictal dose and Seroquel were weaned during treatment. Her primary care counselor assigned was Yolande Trejo. During treatment, she underwent individual and group therapy sessions on drug and alcohol abuse dependency. Completed an educational series on substance abuse. She wrote letters to her family, but no family was present during the family portion of treatment program. Relapse triggers were identified and relapse prevention plan were outlined. She was overall accepting of substance abuse problems. She completed step 1 of Alcoholics Anonymous. Reason for discharge was completion of residential level treatment goals. Aftercare recommendations include followup with [facility] in [place] with sponsor assignment, outpatient counseling, and active AA and NA meeting involvement. LABORATORY AND X-RAY DATA: Include TSH on April 26.19. MEDICATIONS: At time of discharge include: 1. Seroquel 50 mg at bedtime. 2. Trileptal 300 mg at bedtime. 3. Lamotrigine 100 mg at bedtime. 4. Celexa 20 mg at bedtime. FINAL DISCHARGE DIAGNOSES: Include: ADMIT: 04/05/2016 RM/LOC: [facility] MR#: [id number] [address] [id number] ZULEIMA NIEVES [address], [place] [address] General Discharge Summary SEX: F AGE: 30 : 1985 1. Stimulant use disorder, severe with history of IV use. 2. Cannabis use disorder, severe in full sustained remission. 3. Alcohol use disorder, moderate. 4. Tobacco dependency. 5. Exogenous obesity. 6. Bipolar disorder. 7. Genital herpes. 8. Increased risk for blood borne pathogens with history of prior IV drug use with declined testing. PROCEDURES: Include drug and alcohol abuse dependency treatment and counseling. Please see her hospital record for the details. Cyrus Adams MD/ ifrahl JOB #: [id number] CC: Cyrus Adams MD, Attending Physician FAMILY PHYSICIAN, Family Physician
== END 2016-05-03 10:15 | disposition home or self-care (01) | DRG 895 ==
LOC: ADTC 08:22
PROVIDERS: ADMIT Family Medicine
PROC: HZ43ZZZ Group Counseling for Substance Abuse Treatment, 12-Step (ICD-10-PCS; principal; 2016-04-05)
PROC: HZ34ZZZ Individual Counseling for Substance Abuse Treatment, Interpersonal (ICD-10-PCS; principal; 2016-04-05)
DX: F15.20 Other stimulant dependence, uncomplicated (principal); F31.9 Bipolar disorder, unspecified; A60.00 Herpesviral infection of urogenital system, unspecified; E66.09 Other obesity due to excess calories; R25.1 Tremor, unspecified; F12.21 Cannabis dependence, in remission; F10.20 Alcohol dependence, uncomplicated; F17.210 Nicotine dependence, cigarettes, uncomplicated; Z65.3 Problems related to other legal circumstances; Z72.89 Other problems related to lifestyle; Z63.72 Alcoholism and drug addiction in family